=== PATIENT | male | born 1975 | race American Indian/Alaskan Native ===

== ENCOUNTER 2018-01-26 12:17 | Emergency (ER) | payer BC ==
[2018-01-26 13:38] LABS: BASO % 0.4 % (0.0-2.0); LYMPH # 0.7 K/uL (1.0-4.3); LYMPH % 6.9 % (20.0-40.0); MEAN CELL VOLUME 85.5 fL (80.0-94.0); MEAN CORPUSCULAR HEMOGLOBIN 28.5 pg (27.0-31.0); MEAN CORPUSCULAR HGB CONC 33.4 g/dL (33.0-37.0); MEAN PLATELET VOLUME 8.4 fL (7.2-11.7); MONO # 0.4 K/uL (0.0-0.8); MONO % 3.7 % (0.0-10.0); NEUT # 9.3 K/uL (1.8-7.0); PLATELET COUNT 289 K/uL (130-400); RBC 5.26 Mil/uL (4.40-5.90); RED CELL DISTRIBUTION WIDTH 14.1 % (11.5-14.5); WHITE BLOOD COUNT 10.4 K/uL (4.8-10.8)
[2018-01-26] MEDS ORDERED: Sodium Chloride 0.9% 1,000 ML IV ONE (13:38)
--- NOTE | 2018-01-26 13:40 | C.PDOC ---
History Of Present Illness 42 y/o male presents to ED sent from urgent care to rule out appendicitis. Patient c/o right sided lower abdominal pain since 5am associated with x2 episodes of non-bloody vomiting and continuous nausea. Associated mild right sided back pain and decreased PO intake. Has not taken any medication for pain. Patient denies fever, chills, diarrhea, back pain, dysuria, hematuria, headache or any other complaints at this time. Time Seen by Provider: 01/26/18 12:40 Chief Complaint (Nursing): Abdominal Pain History Per: Patient History/Exam Limitations: no limitations Onset/Duration Of Symptoms: Days Current Symptoms Are (Timing): Still Present Location Of Pain/Discomfort: RLQ Past Medical History Reviewed: Historical Data, Nursing Documentation, Vital Signs Vital Signs: Last Vital Signs Temp 98.1 F 01/26/18 12:28 Pulse 71 01/26/18 12:28 Resp 19 01/26/18 12:28 BP 137/82 01/26/18 12:28 Pulse Ox 98 01/26/18 12:28 - Medical History PMH: No Chronic Diseases Surgical History: No Surg Hx Family History: States: No Known Family Hx - Social History Hx Alcohol Use: Yes Hx Substance Use: No - Immunization History Hx Tetanus Toxoid Vaccination: Yes Hx Influenza Vaccination: Yes Hx Pneumococcal Vaccination: No Review Of Systems Constitutional: Negative for: Fever, Chills ENT: Negative for: Throat Pain Cardiovascular: Negative for: Chest Pain, Palpitations, Light Headedness Respiratory: Negative for: Cough, Shortness of Breath Gastrointestinal: Positive for: Nausea, Vomiting, Abdominal Pain. Negative for: Diarrhea, Constipation Genitourinary: Negative for: Dysuria, Hematuria Musculoskeletal: Negative for: Neck Pain, Back Pain Skin: Negative for: Rash Neurological: Negative for: Weakness, Numbness, Headache, Dizziness Physical Exam - Physical Exam Appears: Well, Non-toxic, No Acute Distress Skin: Warm, Dry, No Rash Head: Atraumatic, Normacephalic Eye(s): bilateral: Normal Inspection, PERRL, EOMI Ear(s): Bilateral: Normal Nose: Normal Oral Mucosa: Moist Throat: Normal Neck: Normal ROM, Supple Lymphatic: Normal Exam Cardiovascular: Rhythm Regular Respiratory: Normal Breath Sounds, No Rales, No Rhonchi, No Wheezing Gastrointestinal/Abdominal: Bowel Sounds (normoactive), Soft, Tenderness (Right sided lateral to umbilicus), No Guarding, No Rebound Back: Normal Inspection, No CVA Tenderness, No Paraspinal Tenderness Extremity: Normal ROM, Capillary Refill (<2 seconds) Extremity: Bilateral: Atraumatic, No Pedal Edema, Normal Color And Temperature, Normal ROM Pulses: Left Radial: Normal, Right Radial: Normal, Left Dorsalis Pedis: Normal, Right Dorsalis Pedis: Normal Neurological/Psych: Oriented x3, Normal Speech, Normal Cognition, Normal Motor, Normal Sensation, Normal Reflexes Gait: Steady ED Course And Treatment - Laboratory Results Result Diagrams: 01/26/18 13:33 01/26/18 13:33 Lab Interpretation: Normal O2 Sat by Pulse Oximetry: 98 (RA) Pulse Ox Interpretation: Normal - CT Scan/US ABD/PELVIS with IV contrast Other Rad Studies (CT/US): Read By Radiologist CT/US Interpretation: Impression: Moderate right perinephric fluid. Right sided hydronephrosis and proximal hydroureter. 4mm stone in right mid ureter. - Physician Consult Information Time Consulting Physician Contacted: 17:00 Physician Contacted: Ji Rodgers Jr. Outcome Of Conversation: Case, labs, and CT report discussed. Followup in office. Medical Decision Making Medical Decision Making: Plan: * CBC, CMP * Lipase * Coags * Pepcid * Zofran * IV fluids * CXR * Abd/Pelvis CT with IV contrast Labs unremarkable CXR: no active disease Abd/Pelvis CT: right sided hydronephrosis with 4mm stone at mid distal ureter. Patient reports decreased pain with medications. Spoke with Dr. Rodgers, urology, regarding CT results. He states patient will most likely pass stone on his own and can followup in the office. Recommends urine culture, prescription for pain medication, flomax, and antibiotics. Diagnostic testing results and plan of care discussed with patient, and strict instructions given regarding prescriptions, importance of follow up, and signs to return to Emergency Department, to include worsening abdominal pain, chest pain, fever, chills, or any other new/worsening symptoms. Patient verbalizes understanding of discussion. Patient A&Ox3, ambulating with steady gait, stable for discharge home. Disposition Discussed With Dr.: Ji Rodgers Jr. (17:00) Comment: States patient should followup in office. Recommends urine culture, prescriptions for pain medication, flomax, and antibiotics. Doctor Will See Patient In The: Office Counseled Patient/Family Regarding: Studies Performed, Diagnosis, Need For Followup, Rx Given - Disposition Referrals: Ji Rodgers Jr., MD [Staff Provider] - Disposition: HOME/ ROUTINE Disposition Time: 17:30 Condition: GOOD Additional Instructions: Take flomax daily x 1 week Take bactrim q12h x 1 week Take zofran every 8 hours as needed for vomiting Take ibuprofen every 8 hours as needed for pain, with food Followup with urology within 2 days Followup with PMD within 2 days Return to ER for any new/worsening symptoms Prescriptions: Ibuprofen [Motrin Tab] 600 mg PO Q8H PRN #30 tab PRN Reason: Pain, Moderate (4-7) Ondansetron HCl [Zofran] 4 mg PO Q8H PRN #12 tablet PRN Reason: Nausea/Vomiting Sulfamethoxazole/Trimethoprim [Bactrim DS 800 mg-160 mg] 1 tab PO Q12H #14 tab Tamsulosin [Flomax] 0.4 mg PO DAILY #7 cap Instructions: Kidney Stones (DC), Renal Colic Forms: [employer] ([place]ian), Work Excuse - Clinical Impression Clinical Impression: Nephrolithiasis, Hydronephrosis - 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 - Scribe Statement The provider has reviewed the documentation as recorded by the Tiffani Vides All medical record entries made by the Tiffani were at my direction and personally dictated by me. I have reviewed the chart and agree that the record accurately reflects my personal performance of the history, physical exam, medical decision making, and the department course for this patient. I have also personally directed, reviewed, and agree with the discharge instructions and disposition.
[2018-01-26 13:55] LABS: ALB/GLOB RATIO 1.4 (1.0-2.1); ALBUMIN 4.8 g/dL (3.5-5.0); ALT/SGPT 49 U/L (21-72); AST/SGOT 49 U/L (17-59); BLOOD UREA NITROGEN 13 mg/dL (9-20); CALCIUM 9.7 mg/dl (8.6-10.4); GFR NON-AFRICAN AMERICAN 52
--- NOTE | 2018-01-26 14:10 | RAD ---
HISTORY: abdominal pain COMPARISON: No prior. TECHNIQUE: Chest, one view. FINDINGS: LUNGS: No focal consolidation. Please note that chest x-ray has limited sensitivity for the detection of pulmonary masses. PLEURA: No significant pleural effusion identified. No definite pneumothorax . CARDIOVASCULAR: Heart size appears within normal limits. Mild aortic ectasia. OSSEOUS STRUCTURES: No acute osseous abnormality identified. VISUALIZED UPPER ABDOMEN: Unremarkable. OTHER FINDINGS: None. IMPRESSION: No focal consolidation.
[2018-01-26 14:18] LABS: URINE BILIRUBIN NEGATIVE (NEGATIVE); URINE BLOOD NEGATIVE (NEGATIVE); URINE CLARITY Clear (Clear); URINE COLOR Yellow (YELLOW); URINE GLUCOSE (UA) NORMAL (Normal); URINE LEUKOCYTE ESTERASE NEG Leu/uL (Negative); URINE PROTEIN NEGATIVE (NEGATIVE); URINE UROBILINOGEN NORMAL mg/dL (0.2-1.0)
[2018-01-26 14:38] LABS: BANDS 1 % (0-2); LYMPHOCYTE 10 % (20-40); MONOCYTE 1 % (0-10); NEUTROPHIL 88 % (50-75); PLATELET ESTIMATE NORMAL (NORMAL); TOTAL CELLS COUNTED 100
[2018-01-26] MEDS ORDERED: Iodixanol 320 MG/ML 100 ML BOTTLE IV ONE (15:50)
--- NOTE | 2018-01-26 16:52 | CT ---
Date of service: 01/26/2018 PROCEDURE: CT Abdomen and Pelvis with contrast HISTORY: r/o appendicitis, right-sided pain COMPARISON: None available. TECHNIQUE: Contrast dose: None available. Radiation dose: Total exam DLP = 614.54 mGy-cm. This CT exam was performed using one or more of the following dose reduction techniques: Automated exposure control, adjustment of the mA and/or kV according to patient size, and/or use of iterative reconstruction technique. FINDINGS: LOWER THORAX: No visible consolidation, pleural effusion, or pneumothorax. LIVER: Unremarkable. GALLBLADDER AND BILE DUCTS: Unremarkable. PANCREAS: Unremarkable. SPLEEN: Unremarkable. ADRENALS: Unremarkable. KIDNEYS AND URETERS: The kidneys enhance symmetrically. Moderate right-sided perinephric fluid. Right-sided hydronephrosis and proximal hydroureter. 4 mm calcification in the expected location of the mid right ureter. VASCULATURE: No aortic aneurysm. No atherosclerotic calcification or mural plaque present. BOWEL: Stomach is nondistended. Lack of oral contrast limits evaluation for bowel pathology. Bowel loops appear within normal limits of caliber without evidence of obstruction. APPENDIX: The appendix appears within normal limits of caliber. No secondary signs of acute appendicitis. PERITONEUM: No significant free fluid. No definite free air. LYMPH NODES: No bulky adenopathy identified. BLADDER: Unremarkable. REPRODUCTIVE: Unremarkable. BONES: No acute osseous abnormality is detected. OTHER FINDINGS: None. IMPRESSION: Moderate right perinephric fluid. Right-sided hydronephrosis and proximal hydroureter. 4 mm calcification in the expected location of the mid right ureter. Findings discussed with GRICEL Mercedes on 01/26/18 at 4:42 p.m.
[2018-01-26 17:27] VITALS: BP 134/74; PULSE 80; RESP 18; TEMP 98.6
[2018-01-26] MEDS ORDERED: Tmp-Smz 800 mg-160 mg DS Tab PO SCH (17:30)
[2018-01-26] MEDS ORDERED: Tmp-Smz 800 mg-160 mg DS Tab ONE (17:41)
[2018-01-26 18:42] VITALS: O2SAT 98
== END 2018-01-26 17:50 | disposition home or self-care (01) ==
LOC: C.ER 12:17
DX: N13.2 Hydronephrosis with renal and ureteral calculous obstruction (principal)
CPT/HCPCS: 71045; 74177; 80053; 81001; 83690; 85025; 85610; 85730; 87086; 96374; 96375; 99285; J1885; J2405; J7030; Q9967